=== PATIENT | female | born 1970 | race Caucasian/White ===

== ENCOUNTER 2019-02-10 00:25 | Outpatient (CLI) | payer MEDICAID, SELFPAY ==
--- NOTE | 2019-02-10 08:52 | DI.COMBO_ITS ---
SYMPTOM/DIAGNOSIS: BILAT CYSTIC BREAST LESIONS, N63.0 MAMMOGRAMS AND RIGHT BREAST ULTRASOUND: Mammograms were interpreted according to the usual protocol including computer analysis with CAD system, tomosynthesis and C view imaging. Comparison is made with prior examinations. Breast density, Category D. No suspicious masses or microcalcifications are seen. There has been interval decrease in size of the cyst in the upper inner quadrant of the left breast compared to the prior examination. There is a partially obscured, well circumscribed nodular density at the 9 o'clock position of the right breast. No suspicious microcalcifications are seen. The skin and axilla are unremarkable. Right breast ultrasound was performed of the outer right breast. There are multiple cysts present. The largest is a 1.9 by 1.1 cm. simple cyst at the 8 o'clock position of the left breast which appears to account for the findings on the mammogram. A smaller 0.6 cm. cyst is also seen at the 9 o'clock position 6 cm. from the nipple. IMPRESSION: Right breast cysts. No evidence for malignancy. Yearly mammography is recommended. Category 2. The findings were discussed with the patient on the date of the examination. SA ASSESSMENT OF FINDINGS: Negative with benign findings. Category 2. Patient will receive a letter notifying them of these results. BI-RADS category D. The breasts are extremely dense, which lowers the sensitivity of mammography.
== END 2019-02-10 00:45 ==
PROVIDERS: PCP Family Medicine; Visit Provider Obstetrics & Gynecology Gynecology
DX: N63.11 Unspecified lump in the right breast, upper outer quadrant (principal); N60.11 Diffuse cystic mastopathy of right breast
CPT/HCPCS: 76642; 77062; 77066; G0279

== ENCOUNTER 2019-02-15 14:17 | Outpatient (REF) | payer MEDICAID, SELFPAY ==
--- NOTE | 2019-02-15 13:40 | PAPFT_PTH ---
PATIENT: Freida Gomez LOC: [facility] U#:[id number] AGE/SX: 48/F ROOM: RE02/15/[address]: Reina Beaver : 1970 BED: DIS: 02/15/2019 SPEC #: [id number] RECD: 02/15/19 18:03 STATUS: NIRANJAN RESharri #: [id number] MICHELE: 02/15/19 13:[address]: Reina Beaver DEPT: [facility] Cytology RECD BY: Rupinder Amado ENTERED: 02/15/19 18:03 SP TYPE: PAPFT OTHR DR: Kristy Perera Tissues: 1 - CX/ENDOCX FOR PAP SMEARS Procedures: PAP THIN PREP/UVM Screening HPV DNA PROBE Comments: [id number]
== END 2019-02-15 14:37 ==
LOC: LBN 14:17
PROVIDERS: PCP Family Medicine; Visit Provider Obstetrics & Gynecology Gynecology
DX: Z12.4 Encounter for screening for malignant neoplasm of cervix (principal); Z11.51 Encounter for screening for human papillomavirus (HPV)
CPT/HCPCS: 88142; 87624

== ENCOUNTER 2019-03-20 19:30 | Emergency (ER) | payer MEDICAID, SELFPAY ==
[2019-03-20 19:38] VITALS: BP 127/64; PULSE 63; RESP 16; TEMP 36.6; O2SAT 98
--- NOTE | 2019-03-20 19:48 | W.ED.GENAD ---
Discharge Plan Disposition Patient Disposition: HOME Condition: Improving Discharge Details Chief Complaint: EyeProblem Clinical Impression: Acute conjunctivitis of right eye Primary Care Provider: Kristy Perera ED Provider: Bobby Hood Home Meds and New Rx's Prescriptions: Continued Excedrin Migraine 250-250-65 mg Tablet 1 tab PO PRN PRNRF: 0 herbal drugs Capsule PO DAILY RF: 0 Discharge Instructions Instructions: Conjunctivitis (ED) Additional Instructions: Erythromycin ointment to right eye 3 times daily for 5 to 7 days time. Return for any acute concern. Follow-up with regular doctor if not improving in 5 to 7 days time Medical Decision Making 48-year-old female presents with a primary concern of right eye injection and crusting of the lid this morning with drainage. She has had an antecedent upper respiratory illness with cough, congestion, sore throat. This is improving. Her exam is consistent with acute right conjunctivitis. Will treat with erythromycin ointment. She understands homecare and return precatuions. HPI General Mode of arrival: ambulatory. Date/Time Provider Initiated Documentation: 03/20/19 19:39. Limitations to Documentation: no limitations. Information obtained by: patient. History of Present Illness 48 year old F presents to the emergency department with the chief complaint of Cough, cold, right eye congestion and drainage with crusting of the eyelid, described as moderate, Quality is described as constant, and is localized to the face and right. Patient reports no radiation. Patient started experiencing this day(s) and it has been constant. No relieving factors improve symptom(s), No exacerbating factors reported . Patient notes cough; denies fever/chills. Patient did receive the following treatments prior to arrival, none Related Data Home Medications Medication Instructions Recorded Confirmed Excedrin Migraine 1 tab PO PRN PRN 03/20/19 03/20/19 herbal drugs PO DAILY 03/20/19 Allergies Allergy/AdvReac Type Severity Reaction Status Date / Time Sulfa (Sulfonamide Allergy Intermediate RASH Unverified 03/03/19 15:19 Antibiotics) General Stated Complaint: EyeProblem JANETT: 4 Review of Systems Review of Systems Positive cough that is improving. She had a mild headache that is improving. 6 systems reviewed and otherwise no PFSH Medical History Endometriosis (Inactive) Female infertility (Inactive) Depression (Chronic) Migraine (Resolved) Fibrocystic disease of breast (Chronic) Surgical History Diagnostic Laproscopy (Resolved) Family History Other Diabetes Personal history of malignant neoplasm Social History Smoking/Tobacco Use Status: Never Alcohol Intake: never Drug use: Never Household members: spouse, children and other Details: H-Gabriel. current occupation: Not employed Do you feel safe at home: Yes Do you feel safe in your relationship?: Yes History History 0 Para Hx # Term Pregnancies Multiple births Hx # Pregnancies Ectopic pregnancies AB induced Hx Number of Living Children AB spontaneous Exam Narrative Exam Narrative: GEN: awake, alert, oriented 3. Pleasant, well groomed, interactive. HEAD: Normocephalic, atraumatic ENT: Mucous membranes moist, oropharynx unremarkable, External ear exam unremarkable EYES: Right conjunctival injection with crusting of the lid present. PERRL, EOMI NECK: Full ROM, no JESSICA, no menigismus CHEST/RESP: Nontender, clear to auscultation bilateral, no wheeze/rhonchi/rales CARDIOVASCULAR: RRR, no murmur, rub kavitha. 2+ Rad pulse bilateral ABDOMEN: Soft, nontender, no mass. +Bowel sounds EXT: Full ROM, no edema, no rash Neuro: Grossly normal neurologic exam, conversant, interactive. Psych: Speech fluent, thoughts congruent, affect normal Course Vital Signs Temperature 36.6 C 03/20/19 19:38 Pulse 63 03/20/19 19:38 Respiratory Rate 16 03/20/19 19:38 Blood Pressure 127/64 03/20/19 19:38 Pulse Oximetry 98 03/20/19 19:38 Temperature 36.6 C 03/20/19 19:38 Temperature Source Temporal Artery Scan 03/20/19 19:38 Pulse 63 03/20/19 19:38 Respiratory Rate 16 03/20/19 19:38 Respiratory Effort 03/20/19 19:41 Blood Pressure 127/64 03/20/19 19:38 Pulse Oximetry 98 03/20/19 19:38 Oxygen Delivery Method Room Air 03/20/19 19:38 Oxygen Flow Rate 0 03/20/19 19:38
[2019-03-20] MEDS: Erythromycin Ophth Oint 3.5 GM TUBE OD (19:51)
--- NOTE | 2019-03-20 19:51 | ED.GENADUL_ITS ---
Discharge Plan Disposition Patient Disposition: HOME Condition: Improving Discharge Details Chief Complaint: EyeProblem Clinical Impression: Acute conjunctivitis of right eye Primary Care Provider: Kristy Perera ED Provider: Bobby Hood Home Meds and New Rx's Prescriptions: Continued Excedrin Migraine 250-250-65 mg Tablet 1 tab PO PRN PRNRF: 0 herbal drugs Capsule PO DAILY RF: 0 Discharge Instructions Instructions: Conjunctivitis (ED) Additional Instructions: Erythromycin ointment to right eye 3 times daily for 5 to 7 days time. Return for any acute concern. Follow-up with regular doctor if not improving in 5 to 7 days time Medical Decision Making 48-year-old female presents with a primary concern of right eye injection and crusting of the lid this morning with drainage. She has had an antecedent upper respiratory illness with cough, congestion, sore throat. This is improving. Her exam is consistent with acute right conjunctivitis. Will treat with erythromycin ointment. She understands homecare and return precatuions. HPI General Mode of arrival: ambulatory . Date/Time Provider Initiated Documentation: 03/20/19 19:39 . Limitations to Documentation: no limitations . Information obtained by: patient . History of Present Illness 48 year old F presents to the emergency department with the chief complaint of Cough, cold, right eye congestion and drainage with crusting of the eyelid, described as moderate, Quality is described as constant, and is localized to the face and right. Patient reports no radiation. Patient started experiencing this day(s) and it has been constant. No relieving factors improve symptom(s), No exacerbating factors reported . Patient notes cough; denies fever/chills. Patient did receive the following treatments prior to arrival, none Related Data Home Medications Medication Instructions Recorded Confirmed Excedrin Migraine 1 tab PO PRN PRN 03/20/19 03/20/19 herbal drugs PO DAILY 03/20/19 Allergies Allergy/AdvReac Type Severity Reaction Status Date / Time Sulfa (Sulfonamide Allergy Intermediate RASH Unverified 03/03/19 15:19 Antibiotics) General Stated Complaint: EyeProblem JANETT: 4 Review of Systems Review of Systems Positive cough that is improving. She had a mild headache that is improving. 6 systems reviewed and otherwise no PFSH Medical History Endometriosis (Inactive) Female infertility (Inactive) Depression (Chronic) Migraine (Resolved) Fibrocystic disease of breast (Chronic) Surgical History Diagnostic Laproscopy (Resolved) Family History Other Diabetes Personal history of malignant neoplasm Social History Smoking/Tobacco Use Status: Never Alcohol Intake: never Drug use: Never Household members: spouse, children and other Details: H-Gabriel. current occupation: Not employed Do you feel safe at home: Yes Do you feel safe in your relationship?: Yes History History 0 Para Hx # Term Pregnancies Multiple births Hx # Pregnancies Ectopic pregnancies AB induced Hx Number of Living Children AB spontaneous Exam Narrative Exam Narrative: GEN: awake, alert, oriented 3. Pleasant, well groomed, interactive. HEAD: Normocephalic, atraumatic ENT: Mucous membranes moist, oropharynx unremarkable, External ear exam unremarkable EYES: Right conjunctival injection with crusting of the lid present. PERRL, EOMI NECK: Full ROM, no JESSICA, no menigismus CHEST/RESP: Nontender, clear to auscultation bilateral, no wheeze/rhonchi/rales CARDIOVASCULAR: RRR, no murmur, rub kavitha. 2+ Rad pulse bilateral ABDOMEN: Soft, nontender, no mass. +Bowel sounds EXT: Full ROM, no edema, no rash Neuro: Grossly normal neurologic exam, conversant, interactive. Psych: Speech fluent, thoughts congruent, affect normal Course Vital Signs Temperature 36.6 C 03/20/19 19:38 Pulse 63 03/20/19 19:38 Respiratory Rate 16 03/20/19 19:38 Blood Pressure 127/64 03/20/19 19:38 Pulse Oximetry 98 03/20/19 19:38 Temperature 36.6 C 03/20/19 19:38 Temperature Source Temporal Artery Scan 03/20/19 19:38 Pulse 63 03/20/19 19:38 Respiratory Rate 16 03/20/19 19:38 Respiratory Effort 03/20/19 19:41 Blood Pressure 127/64 03/20/19 19:38 Pulse Oximetry 98 03/20/19 19:38 Oxygen Delivery Method Room Air 03/20/19 19:38 Oxygen Flow Rate 0 03/20/19 19:38
== END 2019-03-20 20:46 | disposition home or self-care (01) ==
PROVIDERS: Emergency Provider Emergency Medicine; PCP Family Medicine
DX: H10.31 Unspecified acute conjunctivitis, right eye (principal)
CPT/HCPCS: 99283

== ENCOUNTER 2020-12-08 17:01 | Outpatient (REF) | payer OTHER, SELFPAY ==
[2020-12-08 21:16] LABS: Lithium 0.7 mmol/l (0.6-1.2)
[2020-12-08 21:57] LABS: Vitamin B12 275 pg/mL (193-986)
== END 2020-12-08 17:02 | disposition home or self-care (01) ==
LOC: NCHCN 17:01
PROVIDERS: PCP Family Medicine; Visit Provider Family Medicine
DX: F31.2 Bipolar disorder, current episode manic severe with psychotic features (principal); F43.10 Post-traumatic stress disorder, unspecified
CPT/HCPCS: 80178; 82607

== ENCOUNTER 2021-01-19 05:04 | Outpatient (CLI) | payer OTHER, SELFPAY ==
--- NOTE | 2021-01-19 14:00 | DI.CT_ITS ---
EXAM: CT SINUS WO CLINICAL HISTORY: SINUS INFECTION, J32.9. Evaluate for sinusitis. TECHNIQUE: Imaging Protocol: Axial computed tomography images with coronal and sagittal reformatted images were created and reviewed. COMPARISON: No exams were available for comparison FINDINGS: AXIAL IMAGES: Frontal sinuses: Normally aerated. Ethmoid air cells: Normally aerated. Maxillary sinuses: Normally aerated. Sphenoid sinus: Normally aerated. Ostiomeatal complexes: Patent. Osseous nasal septum: Deviated toward the right. Nasal cavity is clear. Visualized regional soft tissues: No acute findings. Orbits: Unremarkable. Bones: Defect in the right maxilla related to previous surgery. No evidence bony destruction. No pe riapical lucencies around the roots of the teeth. Mastoid Air Cells: Normally aerated. IMPRESSION: No evidence of sinus disease or other acute abnormality. RADIATION DOSE DELIVERED: 123.55mGy.cm Total DLP DATA REPOSITORY: All CT scans at this facility are submitted to the National Radiology Data Registry (NRDR) Dose Index Registry (DIR) with the [employer] (A[employer]). RADIATION OPTIMIZATION: All CT scans at this facility use at least one of these dose optimization te chniques: automated exposure control; mA and/or kV adjustment per patient size (includes targeted exa ms where dose is matched to clinical indication); or iterative reconstruction.
== END 2021-01-19 05:24 ==
PROVIDERS: PCP Family Medicine; Visit Provider Family Medicine
DX: J32.9 Chronic sinusitis, unspecified (principal)
CPT/HCPCS: 70486

== ENCOUNTER 2021-04-10 17:01 | Outpatient (REF) | payer OTHER, SELFPAY ==
[2021-05-09 08:06] LABS: Fungus Smear No Fungi Seen
== END 2021-04-10 17:02 | disposition home or self-care (01) ==
LOC: LBN 17:01
PROVIDERS: PCP Family Medicine; Visit Provider Naturopath
DX: J32.9 Chronic sinusitis, unspecified (principal); G93.3 Postviral and related fatigue syndromes; Z77.128 Contact with and (suspected) exposure to other hazards in the physical environment; R09.3 Abnormal sputum
CPT/HCPCS: 87102; 87206; 87252; 87070; 87205

== ENCOUNTER 2021-04-12 02:51 | Outpatient (CLI) | payer OTHER, SELFPAY ==
[2021-04-12 15:52] LABS: Abs Immature Grans 0.01 10^3/uL (0.0-0.06); Absolute Basophil Count 0.05 10^3/uL (0.0-0.2); Absolute Eosinophil Count 0.09 10^3/uL (0.0-0.7); Absolute Lymphocyte Count 1.16 10^3/uL (1.2-3.4); Absolute Monocyte Count 0.38 10^3/uL (0.1-0.8); Absolute Neutrophil Count 1.71 10^3/uL (1.2-6.7); Basophils % 1.5; Eosinophils % 2.6; HCT 40.6 % (36.0-46.0); HGB 13.6 g/dL (11.2-15.7); Immature Grans % 0.3; Lymphocytes % 34.1; MCH 30.8 pg (27.0-33.0); MCHC 33.5 % (32.0-36.0); MCV 92.1 fL (80-95); MPV 9.5 fL (8.0-11.0); Monocytes % 11.2; Neutrophils % 50.3; Nucleated RBC 0 %; Platelet Count 291 10^3/uL (130-400); RBC 4.41 10^6/uL (3.93-5.22); RDW-SD 44.3 fL
[2021-04-12 20:10] LABS: ALT 15 U/L (14-59); AST 15 U/L (15-37); Albumin 3.6 g/dL (3.4-5.0); Alkaline Phosphatase 79 U/L (46-116); Anion Gap 9.1 mmol/L (3-11); BUN 12 mg/dL (7-18); Bilirubin, Total 0.4 mg/dL (0.2-1.0); CO2 27.9 mmol/L (21.0-32.0); CREATININE 0.7 mg/dL (0.55-1.02); Calcium 9.3 mg/dL (8.5-10.1); Chloride 102 mmol/L (98-107); Glucose 90 mg/dL (74-106); Potassium 4.2 mmol/L (3.5-5.1); Sodium 139 mmol/L (136-145); Total Protein 6.6 g/dL (6.4-8.2)
[2021-04-14 13:16] LABS: EBV EA IgG Negative (Negative)
[2021-04-16 10:36] LABS: EBNA IgG Negative (Negative); EBV Interpretation (See Note); VCA IgG Positive (Negative); VCA IgM Negative (Negative)
[2021-04-16 10:50] LABS: IgA 238 mg/dL (85-499); IgG 847 mg/dL (610-1,616); IgM 49 mg/dL (35-242)
[2021-04-16 11:16] LABS: Alternaria Tenuis IgE 1.39 kU/L; Aspergillus Fumigatus IgE <0.35 kU/L; Cladosporium IgE <0.35 kU/L; Fusarium moniliforme, IgE <0.35 kU/L (<0.35); Penicillium chrysogenum IgE <0.35 kU/L; Stemphyllium IgE 0.47 kU/L
[2021-04-16 14:48] LABS: M. pneumoniae Ab, IgG Positive (Negative); M. pneumoniae Ab, IgM Negative (Negative)
[2021-04-18 17:42] LABS: CLASS 0; Rhodotorula IgE <0.35 kU/L (<0.35)
== END 2021-04-12 02:52 | disposition home or self-care (01) ==
LOC: LBO 10:54 → LBN 15:08 → LBO 15:09
PROVIDERS: PCP Family Medicine; Visit Provider Naturopath
DX: R09.3 Abnormal sputum (principal); J32.9 Chronic sinusitis, unspecified; Z77.128 Contact with and (suspected) exposure to other hazards in the physical environment; G93.3 Postviral and related fatigue syndromes
CPT/HCPCS: 36415; 80053; 82784; 86003; 86663; 85025; 86664; 86665; 86738

== ENCOUNTER 2021-04-12 15:16 | Outpatient (REF) | payer OTHER, SELFPAY ==
[2021-04-16 21:48] LABS: Arsenic Concentration w/Reflex 14 mcg/L; Arsenic, 24 Hr, U 5 mcg/24 h (<35); Cadmium, 24 Hr, U <0.5 mcg/24 h (<0.7); Lead, 24 Hr, U <1 mcg/24 h (<2); Mercury, 24 Hr, U <2 mcg/24 h (<2); Total Volume 400 mL
[2021-05-10 12:03] LABS: Misc Referral (MAYO) See Comments
== END 2021-04-12 15:17 | disposition home or self-care (01) ==
LOC: LBN 15:16
PROVIDERS: PCP Family Medicine; Visit Provider Naturopath
DX: Z77.128 Contact with and (suspected) exposure to other hazards in the physical environment (principal); J32.9 Chronic sinusitis, unspecified; G93.3 Postviral and related fatigue syndromes; R09.3 Abnormal sputum
CPT/HCPCS: 82175; 82300; 83655; 83825; 81050

== ENCOUNTER 2022-06-12 16:22 | Outpatient (REF) | payer OTHER, SELFPAY ==
[2022-06-12 16:29] LABS: Abs Immature Grans 0.01 10^3/uL (0.0-0.06); Absolute Basophil Count 0.04 10^3/uL (0.0-0.2); Absolute Eosinophil Count 0.58 10^3/uL (0.0-0.7); Absolute Lymphocyte Count 1.22 10^3/uL (1.2-3.4); Absolute Monocyte Count 0.38 10^3/uL (0.1-0.8); Absolute Neutrophil Count 1.83 10^3/uL (1.2-6.7); Eosinophils % 14.3; HCT 39.1 % (36.0-46.0); HGB 12.7 g/dL (11.2-15.7); Immature Grans % 0.2; MCH 30.3 pg (27.0-33.0); MCHC 32.5 % (32.0-36.0); MCV 93 fL (80-95); MPV 10.4 fL (8.0-11.0); Monocytes % 9.4; Neutrophils % 45.1; Platelet Count 280 10^3/uL (130-400); RBC 4.19 10^6/uL (3.93-5.22); RDW 12.9 % (11.7-14.6); RDW-SD 44.2 fL; WBC 4.06 10^3/uL (4.4-10.8)
[2022-06-12 17:18] LABS: PROTEIN < 6.0 mg/dL
[2022-06-12 17:19] LABS: COMMENT (LAB VIEW ONLY) 26.95 mg/dL
[2022-06-12 17:20] LABS: ALT 64 U/L (14-59); AST 32 U/L (15-37); Albumin 3.7 g/dL (3.4-5.0); Alkaline Phosphatase 148 U/L (46-116); BUN 21 mg/dL (7-18); Bilirubin, Total 0.3 mg/dL (0.2-1.0); CREATININE 0.9 mg/dL (0.55-1.02); Chloride 104 mmol/L (98-107); Glucose 96 mg/dL (74-106); Magnesium 2.3 mg/dL (1.8-2.4); Potassium 4.5 mmol/L (3.5-5.1); Sodium 142 mmol/L (136-145); Total Protein 6.8 g/dL (6.4-8.2)
== END 2022-06-12 16:23 | disposition home or self-care (01) ==
LOC: NCHCN 16:22
PROVIDERS: PCP Family Medicine; Visit Provider Nurse Practitioner Family
DX: F43.10 Post-traumatic stress disorder, unspecified (principal); R10.9 Unspecified abdominal pain; Z71.89 Other specified counseling; Z71.3 Dietary counseling and surveillance
CPT/HCPCS: 80053; 82043; 82565; 82570; 83735; 84156; 85025

== ENCOUNTER 2022-07-26 15:10 | Outpatient (REF) | payer OTHER, SELFPAY ==
[2022-07-26 15:54] LABS: Abs Immature Grans 0.01 10^3/uL (0.0-0.06); Absolute Basophil Count 0.02 10^3/uL (0.0-0.2); Absolute Eosinophil Count 0.38 10^3/uL (0.0-0.7); Absolute Lymphocyte Count 1.22 10^3/uL (1.2-3.4); Absolute Monocyte Count 0.41 10^3/uL (0.1-0.8); Absolute Neutrophil Count 2.16 10^3/uL (1.2-6.7); Basophils % 0.5; HCT 38.8 % (36.0-46.0); HGB 12.6 g/dL (11.2-15.7); Immature Grans % 0.2; MCH 30.1 pg (27.0-33.0); MCHC 32.5 % (32.0-36.0); MCV 93 fL (80-95); MPV 10.4 fL (8.0-11.0); Monocytes % 9.8; Neutrophils % 51.5; Platelet Count 252 10^3/uL (130-400); RBC 4.18 10^6/uL (3.93-5.22); RDW 12.2 % (11.7-14.6)
[2022-07-26 17:11] LABS: ALT 40 U/L (14-59); AST 25 U/L (15-37); Albumin 3.5 g/dL (3.4-5.0); Alkaline Phosphatase 109 U/L (46-116); Anion Gap 7.6 mmol/L (3-11); BUN 21 mg/dL (7-18); Bilirubin, Total 0.3 mg/dL (0.2-1.0); CO2 27.4 mmol/L (21.0-32.0); Calcium 9.1 mg/dL (8.5-10.1); Chloride 105 mmol/L (98-107); Estimated GFR 67.36 (mL/min/1.73m2); Glucose 87 mg/dL (74-106); Potassium 4.2 mmol/L (3.5-5.1); Sodium 140 mmol/L (136-145); TSH (W/Ref FT4) 1.61 uIU/mL (0.36-3.74); Total Protein 6.7 g/dL (6.4-8.2)
[2022-07-26 17:42] LABS: Calculated LDL 130 mg/dL (<100); Cholesterol 237 mg/dL (<200); HDL Cholesterol 99 mg/dL (40-60); Triglyceride 41 mg/dL (<150)
== END 2022-07-26 15:11 | disposition home or self-care (01) ==
LOC: NCHCN 15:10
PROVIDERS: PCP Family Medicine; Visit Provider Nurse Practitioner Family
DX: I89.0 Lymphedema, not elsewhere classified (principal); J32.9 Chronic sinusitis, unspecified; M25.562 Pain in left knee; Z71.3 Dietary counseling and surveillance
CPT/HCPCS: 80053; 80061; 84443; 85025

== ENCOUNTER 2022-08-13 02:23 | Outpatient (CLI) | payer OTHER, SELFPAY ==
--- NOTE | 2022-08-13 11:28 | DI.RAD_ITS ---
Exam(s) XR CHEST 2V PA LATERAL EXAM: XR CHEST 2V PA LATERAL CLINICAL HISTORY: LOWER EXTREMITY EDEMA, R60.0; EXERTIONAL SOB, R06.09 TECHNIQUE: 2D digital imaging was performed of the chest. Two images were obtained. PA and lateral views were obtained. COMPARISON: No exams were available for comparison FINDINGS: MEDIASTINUM: Normal. HEART: Normal. PULMONARY VASCULATURE: Normal. LUNGS: Clear. PLEURAL SPACE: No pleural effusion or pneumothorax. BONE:Within normal limits for the patient's age. OTHER FINDINGS:Normal. IMPRESSION: No acute pulmonary findings. DATA REPOSITORY: RADIATION DOSE DELIVERED:
--- NOTE | 2022-08-13 11:45 | DI.US_ITS ---
Exam(s) US ABDOMEN LIMITED EXAM: US ABDOMEN LIMITED CLINICAL HISTORY: ELEVATED LFTS, R79.89; BILAT LOWER EXTREMITY EDEMA, R60.0 TECHNIQUE: Ultrasound abdomen performed using standard protocol. COMPARISON: US PELVIS TRANSVAG from 08/24/2015 FINDINGS: PANCREAS: Normal where visualized. LIVER: Normal. Hepatopedal flow in the Portal Vein. The liver measures in 13.3 cm length. GALLBLADDER: No evidence of cholelithiasis. No evidence of wall thickening. No pericholecystic fluid identified. BILIARY SYSTEM: Common bile duct measures < 7 mm. No intrahepatic biliary ductal dilation. GREGORY'S SIGN: Negative. RIGHT KIDNEY: Kidney is normal in size. No evidence of renal calculi. No evidence of hydronephrosis. There is a 2.7 x 2.8 cm simple cyst in the midpole of the right kidney. No follow-up is recommended . This is present on the ultrasound of the pelvis from 08/24/2015. ASCITES: None seen. IMPRESSION: Unremarkable limited abdominal ultrasound. DATA REPOSITORY:
== END 2022-08-13 02:43 ==
LOC: DI 02:23
PROVIDERS: PCP Family Medicine; Visit Provider Nurse Practitioner Family
DX: N28.1 Cyst of kidney, acquired (principal)
CPT/HCPCS: 71046; 76705

== ENCOUNTER 2022-08-22 18:04 | Outpatient (REF) | payer OTHER, SELFPAY ==
[2022-08-22 18:47] LABS: NT-proBNP 197 pg/mL (<300)
== END 2022-08-22 18:05 | disposition home or self-care (01) ==
LOC: NCHCN 18:04
PROVIDERS: PCP Family Medicine; Visit Provider Nurse Practitioner Family
DX: I07.1 Rheumatic tricuspid insufficiency (principal); R60.0 Localized edema
CPT/HCPCS: 83880

== ENCOUNTER 2022-08-25 09:51 | Emergency (ER) | payer OTHER, SELFPAY ==
[2022-08-25 10:00] VITALS: BP 124/66; PULSE 77; RESP 18; TEMP 36.7; O2SAT 100
--- NOTE | 2022-08-25 10:00 | RT.EKG_ITS ---
APPROVED REPORT Exam: Resting ECG Reason for Exam: chest pressure Patient Location: E HR:78 bpm ECG Measurements Heart Rate 78 AXIS MI 108 P 26 QRSd 92 QRS 54 QT 381 T 11 QTc 436 Conclusion Sinus rhythm...normal P axis, V-rate 60- 99
--- NOTE | 2022-08-25 10:15 | DI.RAD_ITS ---
Exam(s) XR PORTABLE CHEST AP EXAM: XR PORTABLE CHEST AP CLINICAL HISTORY: cough, sputum, PUI. TECHNIQUE: 2D digital imaging was performed. COMPARISON: CR XR CHEST 2V PA LATERAL from 08/13/2022 FINDINGS: Single AP portable view. Heart size is upper normal. The mediastinum is not widened. Lungs are clear. No infiltrates nor obvious pleural effusions. IMPRESSION: No acute pulmonary findings on this single AP portable view of the chest. DATA REPOSITORY: RADIATION DOSE DELIVERED:
--- NOTE | 2022-08-25 10:26 | ED.GENADUL_ITS ---
Discharge Plan Disposition Patient Disposition: HOME Condition: Improving Discharge Details Clinical Impression: Bronchitis Primary Care Provider: ATTILA GARCIA ED Provider: Bobby Hood Home Meds and New Rx's Prescriptions: New azithromycin 250 mg tablet See Rx Instructions .ROUTE .COMPLEX Qty: 6 0RF Rx Instructions: For 250 mg dose pack: take 500 mg today (day 1), then 250 mg for 4 days (days 2-5) Continued conjugated estrogens 0.625 mg/gram cream 0.625 mg vaginal DAILY Qty: 30 1RF Rx Instructions: insert 1 gm vaginally daily for 2 weeks then twice weekly Excedrin Migraine 250-250-65 mg Tablet 1 tab PO PRN PRN herbal drugs Capsule PO DAILY furosemide 20 mg tablet 1 tab PO DAILY Label Comments: TAKE ONE-HALF TO ONE TABLET BY MOUTH ONCE DAILY NEEDED Discharge Instructions Instructions: Acute Bronchitis (ED) Additional Instructions: Your work-up today including chest x-ray, EKG and laboratories with cardiac troponin was reassuring. Home to rest today. Has he discussed you may use a [id number] approach to the use of antibiotics for acute bronchitis. Please follow-up with your regular doctor for recheck as planned. Medical Decision Making 51-year-old female presents from home with complaint of 1 week of URI symptoms including cough, congestion, production of brown and somewhat pink sputum at times. She was recently diagnosed with a 50 pound weight gain and started on 20 mg of daily Lasix this week. She has had malaise and some subjective chills. No shortness of breath and no significant chest pain. She is alert and interactive, well-appearing, her exam is reassuring. Differential diagnosis would include pneumonia, bronchitis, viral syndrome, must exclude CHF given her recent history. IV access was established and screening labs obtained. Patient referred for EKG, chest x-ray. Laboratory analysis notes unremarkable CBC, negative influenza and COVID swabs. Chemistries note slight elevation of the BUN and creatinine at 21/1.1. BNP is 131 and troponin is negative. Chest x-ray without focal infiltrate. Please see the formal report. Patient reassured. She likely does have a component of bronchitis. Offered her antibiotics for the outpatient setting. She has freestanding follow-up in cardiology clinic pending. She will follow-up with primary care as well. HPI General Mode of arrival: ambulatory . Date/Time Provider Initiated Documentation: 08/25/22 10:10 . Limitations to Documentation: no limitations . Information obtained by: patient . History of Present Illness 51 year old F presents to the emergency department with the chief complaint of Cough and production of sputum for 1 week, described as moderate, and is localized to the chest. Patient reports no radiation. Patient started experiencing this day(s) and it has been intermittent. No relieving factors improve symptom(s), No exacerbating factors reported . Patient notes cough, malaise and other (No significant chest pain); denies shortness of breath. Patient did receive the following treatments prior to arrival, none Related Data Home Medications Medication Instructions Recorded Confirmed [id number] 250 1 tab PO PRN PRN 03/20/19 08/25/22 mg-250 mg-65 mg tablet (Excedrin Migraine) herbal drugs PO DAILY 03/20/19 05/25/22 conjugated estrogens 0.625 mg/gram 0.625 mg vaginal DAILY #30 grams 04/03/22 08/25/22 vaginal cream azithromycin 250 mg tablet See Rx Instructions PO .COMPLEX #6 08/25/22 tabs furosemide 20 mg tablet 1 tab PO DAILY 08/25/22 08/25/22 Previous Rx's Medication Instructions Recorded conjugated estrogens 0.625 mg/gram 0.625 mg vaginal DAILY #30 grams 04/03/22 vaginal cream azithromycin 250 mg tablet See Rx Instructions PO .COMPLEX #6 08/25/22 tabs Allergies Allergy/AdvReac Type Severity Reaction Status Date / Time Sulfa (Sulfonamide Allergy Intermediate RASH Unverified 08/25/22 10:14 Antibiotics) bupropion [From Wellbutrin] Allergy Unknown Verified 08/25/22 10:14 buspirone Allergy Unknown Verified 08/25/22 10:14 cetirizine [From Zyrtec] Allergy Unknown Verified 08/25/22 10:14 escitalopram [From Lexapro] Allergy Unknown Verified 08/25/22 10:14 naproxen Allergy Unknown Verified 08/25/22 10:14 paroxetine [From Paxil] Allergy Unknown Verified 08/25/22 10:14 trazodone Allergy Unknown Verified 08/25/22 10:14 seafood Allergy Unknown Uncoded 08/25/22 10:14 General Stated Complaint: RespSymp JANETT: 3 Review of Systems Narrative: 6 systems reviewed and otherwise negative. Recent 50 pound weight gain and started on Lasix 20 mg daily this week. PFSH All Active Problems (Updated 08/25/22 @ 11:58 by Bobby Hood MD) Bronchitis (Acute) Bilateral lower extremity edema (Acute) Knee pain, left (Acute) Anxiety (Chronic) PTSD (post-traumatic stress disorder) (Acute) Bipolar affective disorder, manic, severe (Acute) with psychosis Chronic sinusitis (Acute) Back pain (Acute) Physical deconditioning (Acute) Vaginal atrophy (Acute) Dyspareunia (Acute) Right groin pain (Acute) Bilateral arm pain (Acute) Elbow pain, right (Acute) Insomnia (Acute) Neck pain (Acute) Depression (Chronic) 05/2015/07/2015 [place] [facility] for dx of bipolar dz. Rx with [place]/Zyprexa that was changed to Risperidone until pt began having poor sleep and somnolence. 09/2015 Celexa. 12/2015 Celexa and Abilify. Fibrocystic disease of breast (Chronic) 2018 office aspiration of left benign breast cyst. 02/2019 aspiration of right breast cyst. Family History Other Diabetes Personal history of malignant neoplasm Social History Smoking/Tobacco Use Status: Never Smoking risk assessment performed?: Yes Alcohol Intake: never Drug use: Never Household members: spouse, children and other Details: H-Gabriel. current occupation: Not employed Do you feel safe at home: Yes Do you feel safe in your relationship?: Yes History History 0 Para Hx # Term Pregnancies Multiple births Hx # Pregnancies Ectopic pregnancies AB induced Hx Number of Living Children AB spontaneous Exam Narrative Exam Narrative: GEN: awake, alert, oriented 3. Pleasant, well groomed, interactive. HEAD: Normocephalic, atraumatic ENT: Mucous membranes moist, oropharynx unremarkable, External ear exam unremarkable EYES: PERRL, EOMI NECK: Full ROM, no JESSICA, no menigismus CHEST/RESP: Nontender, clear to auscultation bilateral, cough noted CARDIOVASCULAR: RRR, no murmur, rub kavitha. 2+ Rad pulse bilateral ABDOMEN: Soft, nontender, no mass. +Bowel sounds EXT: Full ROM, normal musculature Neuro: Grossly normal neurologic exam, conversant, interactive. Psych: Speech fluent, thoughts congruent, affect normal Course Vital Signs Vital signs: Temperature Source Skin 08/25/22 10:00 Oxygen Delivery Method Room Air 08/25/22 10:00 Oxygen Flow Rate 0 08/25/22 10:00 Pain Level 8 08/25/22 10:00
[2022-08-25 11:05] LABS: Abs Immature Grans 0.01 10^3/uL (0.0-0.06); Absolute Basophil Count 0.03 10^3/uL (0.0-0.2); Absolute Eosinophil Count 0.43 10^3/uL (0.0-0.7); Absolute Lymphocyte Count 1.58 10^3/uL (1.2-3.4); Absolute Monocyte Count 0.56 10^3/uL (0.1-0.8); Absolute Neutrophil Count 4.18 10^3/uL (1.2-6.7); Basophils % 0.4; Eosinophils % 6.3; HCT 41.4 % (36.0-46.0); HGB 13.6 g/dL (11.2-15.7); Immature Grans % 0.1; Lymphocytes % 23.3; MCH 29.6 pg (27.0-33.0); MCHC 32.9 % (32.0-36.0); MCV 90 fL (80-95); MPV 9.5 fL (8.0-11.0); Monocytes % 8.2; Neutrophils % 61.7; Platelet Count 256 10^3/uL (130-400); RDW-SD 39.5 fL; WBC 6.79 10^3/uL (4.4-10.8)
[2022-08-25 11:38] LABS: COVID-19 PCR Negative (Negative); Influenza A PCR Negative (Negative); Influenza B PCR Negative (Negative); RSV PCR Negative (Negative)
--- NOTE | 2022-08-25 11:42 | DI.VRAD_ITS ---
PROCEDURE INFORMATION: Exam: XR Chest Exam date and time: 08/25/2022 11:05 AM Age: 51 years old Clinical indication: Other: SOB, cough, sputum, pui TECHNIQUE: Imaging protocol: Radiologic exam of the chest. Views: 1 view. COMPARISON: CR XR CHEST 2V PA LATERAL 08/13/2022 11:23 AM FINDINGS: Lungs: No focal consolidation. Pleural spaces: No pneumothorax or sizable pleural effusion. Heart/Mediastinum: Normal cardiomediastinal silhouette. Bones/joints: No acute abnormality. IMPRESSION: No acute findings. Dictated and Authenticated by: Sj Mccain MD. Ordering:UNIQUE Rosales MD
[2022-08-25 11:47] LABS: ALT 27 U/L (14-59); AST 16 U/L (15-37); Albumin 3.8 g/dL (3.4-5.0); Alkaline Phosphatase 104 U/L (46-116); Anion Gap 7.6 mmol/L (3-11); BUN 21 mg/dL (7-18); Bilirubin, Total 0.4 mg/dL (0.2-1.0); CO2 30.4 mmol/L (21.0-32.0); CREATININE 1.1 mg/dL (0.55-1.02); Calcium 9.6 mg/dL (8.5-10.1); Chloride 101 mmol/L (98-107); Estimated GFR 60.08 (mL/min/1.73m2); Glucose 90 mg/dL (74-106); NT-proBNP 131 pg/mL (<300); Potassium 3.8 mmol/L (3.5-5.1); Sodium 139 mmol/L (136-145); Total Protein 7.5 g/dL (6.4-8.2); Troponin I < 50 ng/L (<or=60)
[2022-08-25 12:26] VITALS: BP 119/72; PULSE 75; RESP 12; O2SAT 100
== END 2022-08-25 12:37 | disposition home or self-care (01) ==
PROVIDERS: Emergency Provider Emergency Medicine; PCP Nurse Practitioner Family
DX: J20.9 Acute bronchitis, unspecified (principal); Z20.822 Contact with and (suspected) exposure to COVID-19
CPT/HCPCS: 36415; 80053; 87637; 93005; 99283; 71045; 83880; 84484; 85025; 93010; 99284

== ENCOUNTER 2022-08-26 10:29 | Outpatient (CLI) | payer OTHER, SELFPAY ==
--- NOTE | 2022-08-26 08:33 | DI.RAD_ITS ---
Exam(s) XR KNEE LT 3V AP,LAT,JANET EXAM: XR KNEE LT 3V AP,LAT,JANET CLINICAL HISTORY: knee pain. TECHNIQUE: 2D digital imaging was performed. Three views. COMPARISON: CR XR KNEE RT 3V AP,LAT,JANET from 08/26/2022 FINDINGS: BONES: No acute fracture is present. No bony destructive lesion is seen. JOINTS: The knee is normally aligned. No joint effusion is seen. SOFT TISSUE: Normal. IMPRESSION: Normal radiographs of the left knee. DATA REPOSITORY: RADIATION DOSE DELIVERED:
--- NOTE | 2022-08-26 08:33 | DI.RAD_ITS ---
Exam(s) XR KNEE RT 3V AP,LAT,JANET EXAM: XR KNEE RT 3V AP,LAT,JANET CLINICAL HISTORY: pain in knee. TECHNIQUE: 2D digital imaging was performed. Three views. COMPARISON: No exams were available for comparison FINDINGS: BONES: No acute fracture is present. No bony destructive lesion is seen. JOINTS: The knee is normally aligned. No joint effusion is seen. SOFT TISSUE: Normal. IMPRESSION: Unremarkable radiographs of the right knee. DATA REPOSITORY: RADIATION DOSE DELIVERED:
== END 2022-08-26 10:30 | disposition home or self-care (01) ==
LOC: DIORS 10:29
PROVIDERS: PCP Nurse Practitioner Family; Referring Provider Nurse Practitioner Family; Visit Provider Physician Assistant Surgical
DX: M25.561 Pain in right knee (principal); M25.562 Pain in left knee
CPT/HCPCS: 73562

== ENCOUNTER 2022-11-25 19:34 | Outpatient (REF) | payer BC, OTHER, SELFPAY ==
[2022-11-25 18:38] LABS: Bacteria Negative HPF (Negative); C & S Indicated? No; Casts Negative LPF (Negative); Crystals Negative HPF (Negative); Epithelial Cells Few HPF (Negative); Mucus Negative (Negative); RBC 0-2 HPF (0-2); WBC 0-2 HPF (0-5)
[2022-11-25 18:39] LABS: Abs Immature Grans 0.02 10^3/uL (0.0-0.06); Absolute Basophil Count 0.03 10^3/uL (0.0-0.2); Absolute Eosinophil Count 0.29 10^3/uL (0.0-0.7); Absolute Lymphocyte Count 1.45 10^3/uL (1.2-3.4); Absolute Monocyte Count 0.29 10^3/uL (0.1-0.8); Absolute Neutrophil Count 2.08 10^3/uL (1.2-6.7); Basophils % 0.7; HCT 42.4 % (36.0-46.0); HGB 13.5 g/dL (11.2-15.7); Immature Grans % 0.5; Lymphocytes % 34.9; MCH 29.7 pg (27.0-33.0); MCHC 31.8 % (32.0-36.0); MCV 93 fL (80-95); MPV 10.5 fL (8.0-11.0); Neutrophils % 49.9; Platelet Count 298 10^3/uL (130-400); RBC 4.54 10^6/uL (3.93-5.22); RDW 12.8 % (11.7-14.6); RDW-SD 44.3 fL; WBC 4.16 10^3/uL (4.4-10.8)
[2022-11-25 19:00] LABS: COMMENT (LAB VIEW ONLY) 186.69 mg/dL; PROTEIN 16.2 mg/dL; Prot/Crea Ur Ratio 0.08
[2022-11-25 19:03] LABS: Microalb ug/mg Crea 3.7 ug/mg Cr
[2022-11-25 21:39] LABS: ALT 56 U/L (14-59); AST 33 U/L (15-37); Albumin 3.9 g/dL (3.4-5.0); Alkaline Phosphatase 103 U/L (46-116); Anion Gap 14.1 mmol/L (3-11); BUN 21 mg/dL (7-18); Bilirubin, Total 0.3 mg/dL (0.2-1.0); CO2 21.9 mmol/L (21.0-32.0); Calcium 9.7 mg/dL (8.5-10.1); Chloride 106 mmol/L (98-107); Estimated GFR 66.95 (mL/min/1.73m2); Glucose 84 mg/dL (74-106); Potassium 4.5 mmol/L (3.5-5.1); Sodium 142 mmol/L (136-145); Total Protein 7.3 g/dL (6.4-8.2)
== END 2022-11-25 19:35 | disposition home or self-care (01) ==
LOC: NCHCN 19:34
PROVIDERS: PCP Nurse Practitioner Family; Visit Provider Nurse Practitioner Family
DX: R60.0 Localized edema (principal); Z00.00 Encounter for general adult medical examination without abnormal findings; R79.89 Other specified abnormal findings of blood chemistry
CPT/HCPCS: 80053; 81015; 82043; 82565; 82570; 84156; 85025

== ENCOUNTER 2023-04-03 15:23 | Outpatient (REF) | payer OTHER, SELFPAY ==
[2023-04-03 15:17] LABS: Abs Immature Grans 0.02 10^3/uL (0.0-0.06); Absolute Basophil Count 0.03 10^3/uL (0.0-0.2); Absolute Eosinophil Count 0.39 10^3/uL (0.0-0.7); Absolute Lymphocyte Count 1.26 10^3/uL (1.2-3.4); Absolute Monocyte Count 0.51 10^3/uL (0.1-0.8); Absolute Neutrophil Count 2.79 10^3/uL (1.2-6.7); Basophils % 0.6; Eosinophils % 7.8; HCT 39.2 % (36.0-46.0); Immature Grans % 0.4; Lymphocytes % 25.2; MCH 30.5 pg (27.0-33.0); MCHC 33.2 % (32.0-36.0); MCV 92 fL (80-95); MPV 9.7 fL (8.0-11.0); Monocytes % 10.2; Neutrophils % 55.8; Platelet Count 265 10^3/uL (130-400); RBC 4.26 10^6/uL (3.93-5.22); RDW 12.7 % (11.7-14.6); RDW-SD 43.4 fL
[2023-04-03 15:23] LABS: ESR 19 mm/hr (0-30)
[2023-04-03 15:53] LABS: Vitamin D 25 Total 41.2 ng/mL (30-100)
[2023-04-03 15:55] LABS: ALT 30 U/L (14-59); AST 23 U/L (15-37); Albumin 3.3 g/dL (3.4-5.0); Alkaline Phosphatase 104 U/L (46-116); Anion Gap 6.1 mmol/L (3-11); BUN 16 mg/dL (7-18); Bilirubin, Total 0.3 mg/dL (0.2-1.0); C-Reactive Protein 1.81 mg/dL (0.0-0.3); CO2 27.9 mmol/L (21.0-32.0); Calcium 9.5 mg/dL (8.5-10.1); Chloride 106 mmol/L (98-107); Estimated GFR 66.95 (mL/min/1.73m2); Glucose 97 mg/dL (74-106); Potassium 4.1 mmol/L (3.5-5.1); Sodium 140 mmol/L (136-145); TSH (W/Ref FT4) 1.23 uIU/mL (0.36-3.74); Total Protein 6.8 g/dL (6.4-8.2)
[2023-04-03 15:57] LABS: Hemoglobin A1C 5.2 % (<5.7)
[2023-04-03 17:07] LABS: Vitamin B12 315 pg/mL (193-986)
[2023-04-03 19:59] LABS: Lithium 0.6 mmol/l (0.6-1.2)
== END 2023-04-03 15:24 | disposition home or self-care (01) ==
LOC: NCHCN 15:23
PROVIDERS: PCP Nurse Practitioner Family; Visit Provider Registered Nurse
DX: F31.9 Bipolar disorder, unspecified (principal); Z51.81 Encounter for therapeutic drug level monitoring
CPT/HCPCS: 80053; 82306; 85652; 80178; 82607; 83036; 83735; 84443; 85025; 86140

== ENCOUNTER 2023-11-04 09:51 | Emergency (ER) | payer OTHER, SELFPAY ==
[2023-11-04 09:55] VITALS: BP 158/103; PULSE 111; RESP 16; TEMP 36.5; O2SAT 100
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
[2023-11-04 10:37] LABS: Bilirubin Negative (Negative); Blood Negative (Negative); Clarity Sl Cloudy (Clear); Glucose Negative (Negative); Ketones 15 mg/dL (Negative); Leukocyte Esterase Trace (Negative); Nitrite Negative (Negative); Specific Gravity >= 1.030 (1.005-1.025); Urobilinogen 0.2 mg/dL (Up to 0.2); pH 5.5 (5-8)
[2023-11-04 10:42] LABS: HGB 14.4 g/dL (11.2-15.7); MCH 29.1 pg (27.0-33.0); MCHC 32.7 % (32.0-36.0); MCV 89 fL (80-95); MPV 9.4 fL (8.0-11.0); Platelet Count 284 10^3/uL (130-400); RBC 4.94 10^6/uL (3.93-5.22); RDW 13.3 % (11.7-14.6); WBC 5.94 10^3/uL (4.4-10.8)
[2023-11-04 10:44] LABS: Epithelial Cells Many HPF (Negative); RBC 0-2 HPF (0-2)
[2023-11-04 10:45] LABS: Bacteria Many HPF (Negative); C & S Indicated? No/Sq. Contamination; Casts Negative LPF (Negative); Crystals Negative HPF (Negative); Mucus Moderate (Negative)
[2023-11-04 10:55] LABS: *AMPHETAMINES SCREEN URINE Negative (Negative); *BARBITURATES SCREEN URINE Negative (Negative); *BENZODIAZEPINES SCREEN URINE Negative (Negative); Cannabinoids THC Negative (Negative); Cocaine Screen,Urine Negative (Negative); METHADONE URINE SCREEN Negative (Negative); OPIATES URINE SCREEN Negative (Negative)
[2023-11-04 10:57] LABS: Tricyclic Antidepressants Negative (Negative)
[2023-11-04 11:06] LABS: Salicylate < 2.8 mg/dL (<2.8)
[2023-11-04 11:10] LABS: Acetaminophen < 2 ug/mL (10-30); Lithium < 0.2 mmol/l (0.6-1.2)
[2023-11-04 11:18] LABS: Anion Gap 11.1 mmol/L (3-11); BUN 21 mg/dL (7-18); CO2 23.9 mmol/L (21.0-32.0); CREATININE 1.1 mg/dL (0.55-1.02); Calcium 9.6 mg/dL (8.5-10.1); Chloride 104 mmol/L (98-107); Estimated GFR 59.34 (mL/min/1.73m2); Glucose 101 mg/dL (74-106); Potassium 4.1 mmol/L (3.5-5.1); Sodium 139 mmol/L (136-145); TSH (W/Ref FT4) 1.33 uIU/mL (0.36-3.74)
[2023-11-04 11:19] LABS: ETHANOL BLOOD < 3.0 mg/dL (<10)
[2023-11-04 11:21] LABS: COVID-19 PCR Negative (Negative); Influenza A PCR Negative (Negative); Influenza B PCR Negative (Negative); RSV PCR Negative (Negative)
[2023-11-04 11:22] LABS: Source Nasopharynx
--- NOTE | 2023-11-04 12:09 | NUR.NOTE ---
Chema Shetty [phone] Nursing Note:
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
[2023-11-04 15:15] VITALS: BP 128/75; PULSE 95; O2SAT 98
[2023-11-04 18:12] LABS: NT-proBNP 155 pg/mL (<300)
[2023-11-04 18:17] LABS: Hemoglobin A1C 5.3 % (<5.7)
[2023-11-04 18:29] LABS: Lab Add On Test DONE
== END 2023-11-04 15:21 | disposition home or self-care (01) ==
PROVIDERS: Emergency Provider Registered Nurse Emergency; PCP Nurse Practitioner Family
DX: F41.9 Anxiety disorder, unspecified (principal); T74.91XA Unspecified adult maltreatment, confirmed, initial encounter
CPT/HCPCS: 00123; 80048; 80307; 85027; 87637; 96127; 99283; 80178; 80320; 80329; 81003; 81015; 83036; 83880; 84443

== ENCOUNTER 2023-11-11 13:41 | Outpatient (CLI) | payer OTHER, SELFPAY ==
[2023-11-11 12:16] LABS: Lithium 0.7 mmol/l (0.6-1.2)
== END 2023-11-11 13:42 | disposition home or self-care (01) ==
LOC: LBO 14:00
PROVIDERS: PCP Nurse Practitioner Family; Visit Provider Registered Nurse
DX: Z79.899 Other long term (current) drug therapy (principal)
CPT/HCPCS: 36415; 80178

== ENCOUNTER 2023-11-12 10:04 | Outpatient (CLI) | payer OTHER, SELFPAY ==
[2023-11-12 09:20] LABS: Bilirubin Negative (Negative); Blood Trace-intact (Negative); Clarity Clear (Clear); Glucose Negative (Negative); Ketones Negative (Negative); Leukocyte Esterase Small (Negative); Nitrite Negative (Negative); Urobilinogen 0.2 mg/dL (Up to 0.2); pH 6.5 (5-8)
[2023-11-12 09:27] LABS: Glucose 88 mg/dL (74-106)
[2023-11-12 09:45] LABS: Epithelial Cells Moderate HPF (Negative)
[2023-11-12 09:46] LABS: Bacteria Rare HPF (Negative); C & S Indicated? No/Sq. Contamination; Casts Negative LPF (Negative); Crystals Negative HPF (Negative); Mucus Negative (Negative)
== END 2023-11-12 10:05 | disposition home or self-care (01) ==
LOC: LBO 10:05
PROVIDERS: PCP Nurse Practitioner Family; Visit Provider Registered Nurse
DX: Z79.899 Other long term (current) drug therapy (principal)
CPT/HCPCS: 36415; 82947; 81003; 81015

== ENCOUNTER 2023-11-26 12:26 | Outpatient (CLI) | payer OTHER, SELFPAY ==
[2023-11-26 12:05] LABS: Lithium 0.7 mmol/l (0.6-1.2)
== END 2023-11-26 12:27 | disposition home or self-care (01) ==
PROVIDERS: PCP Nurse Practitioner Family; Visit Provider Registered Nurse
DX: F31.89 Other bipolar disorder (principal); F41.8 Other specified anxiety disorders; Z79.899 Other long term (current) drug therapy
CPT/HCPCS: 36415; 80178

== ENCOUNTER 2024-10-21 02:45 | Outpatient (CLI) | payer OTHER, SELFPAY ==
[2024-10-21 08:04] LABS: Abs Immature Grans 0.02 10^3/uL (0.0-0.06); Absolute Basophil Count 0.04 10^3/uL (0.0-0.2); Absolute Eosinophil Count 0.48 10^3/uL (0.0-0.7); Absolute Lymphocyte Count 1.26 10^3/uL (1.2-3.4); Absolute Monocyte Count 0.69 10^3/uL (0.1-0.8); Absolute Neutrophil Count 4.32 10^3/uL (1.2-6.7); Basophils % 0.6 %; HCT 40.9 % (36.0-46.0); HGB 13.1 g/dL (11.2-15.7); Immature Grans % 0.3 %; Lymphocytes % 18.5 %; MCH 30.1 pg (27.0-33.0); MCV 94 fL (80-95); MPV 9.4 fL (8.0-11.0); Monocytes % 10.1 %; Neutrophils % 63.5 %; Platelet Count 249 10^3/uL (130-400); RBC 4.35 10^6/uL (3.93-5.22); RDW 13.1 % (11.7-14.6); RDW-SD 45.1 fL; WBC 6.81 10^3/uL (4.4-10.8)
[2024-10-21 08:16] LABS: Hemoglobin A1C 5.1 % (<5.7)
[2024-10-21 08:57] LABS: ALT 27 U/L (14-59); AST 18 U/L (15-37); Albumin 3.3 g/dL (3.4-5.0); Alkaline Phosphatase 150 U/L (46-116); Anion Gap 8.6 mmol/L (3-11); BUN 13 mg/dL (7-18); Bilirubin, Total 0.37 mg/dL (0.2-1.0); CO2 28.4 mmol/L (21.0-32.0); Chloride 104 mmol/L (98-107); Estimated GFR 66.12 (mL/min/1.73m2); Glucose 93 mg/dL (74-106); Potassium 3.9 mmol/L (3.5-5.1); Sodium 141 mmol/L (136-145); Total Protein 7.1 g/dL (6.4-8.2); Vitamin B12 347 pg/mL (193-986); Vitamin D 25 Total 42.6 ng/mL (30-100)
== END 2024-10-21 02:46 | disposition home or self-care (01) ==
LOC: LBO 02:45
PROVIDERS: PCP Nurse Practitioner Family; Visit Provider Registered Nurse
DX: F33.3 Major depressive disorder, recurrent, severe with psychotic symptoms (principal); F43.12 Post-traumatic stress disorder, chronic; Z51.81 Encounter for therapeutic drug level monitoring
CPT/HCPCS: 36415; 80053; 82306; 82607; 83036; 84443; 85025

== ENCOUNTER 2024-12-09 02:03 | Outpatient (CLI) | payer OTHER, SELFPAY ==
--- NOTE | 2024-12-27 06:36 | TELEFU_ITS ---
Date of service: 12/09/24 Time of Service: 09:00 Nutrition Note NOTE: Freida referred for nutrition visit with goal to help better manage overall health and especially her chronic concerns with interstitial cystitis and lymphedema. weight: 144.8lbs/65.8kg height:63 BMI: 25.7 Seafood allergy noted. Takes supps at home: magnesium, potassium, fishoil, B12, D3, elerberry prn, probiotic We discussed that there really isn't a particular outlined way to manage her concerns exclusively with diet but that a general healthy diet would be recommended and that anti-inflammatory pattern is a very healthy way to eat - also include lifestyle so encouraged exercise (this as well to encourage lymph flow) and quality sleep, stress management. For anti-inflammatory diet discussed concepts that are congruent with the approach - low added sugar (suggested <15g per day), high fiber, low saturate d/transfat, large amount of protein coming from plants and very minimal high quality lean animal proteins. Reviewed spices like cinnamon, luma, turmeric, garlic, and others that help address inflammation. luna foods as well like different berries/cherries, beans/legumes, green and hibiscus teas, and keeping cooking oils from reaching smoke point. Suggested kcal target of ~1500kcals per day with goal to maintain around her current body weight but focus on body recomposition by losing fat mass and increasing lean body mass. Highly recommended strength training exercises as part of her approach and using an inexpensive bioimpedence scale to help get a better idea of body weight distribution trends as oppossed to just weight loss. emailed pt sample menus to review. She has my contact info should any questions or need for further resources arise. Time Spent in Nutritional Counseling and Treatment: 25 min
== END 2024-12-09 02:04 | disposition home or self-care (01) ==
LOC: DS 02:03
PROVIDERS: PCP Nurse Practitioner Family; Visit Provider Dietitian, Registered
DX: Z71.3 Dietary counseling and surveillance (principal); N30.10 Interstitial cystitis (chronic) without hematuria; I89.0 Lymphedema, not elsewhere classified
CPT/HCPCS: 00123; 97802

== ENCOUNTER 2025-01-13 12:10 | Outpatient (REF) | payer OTHER, SELFPAY ==
[2025-01-13 16:21] LABS: ALT 40 U/L (14-59); AST 22 U/L (15-37); Albumin 3.4 g/dL (3.4-5.0); Alkaline Phosphatase 126 U/L (46-116); Anion Gap 6.4 mmol/L (3-11); BUN 20 mg/dL (7-18); Bilirubin, Total 0.3 mg/dL (0.2-1.0); CO2 29.6 mmol/L (21.0-32.0); CREATININE 1.1 mg/dL (0.55-1.02); Calcium 9.2 mg/dL (8.5-10.1); Chloride 107 mmol/L (98-107); Estimated GFR 58.97 (mL/min/1.73m2); GGT 31 U/L (5-55); Glucose 84 mg/dL (74-106); Potassium 4.5 mmol/L (3.5-5.1); Sodium 143 mmol/L (136-145); Total Protein 6.5 g/dL (6.4-8.2)
[2025-01-13 17:22] LABS: Calculated LDL 141 mg/dL (<100); Cholesterol 245 mg/dL (<200); HDL Cholesterol 92 mg/dL (>or=50); Triglyceride 64 mg/dL (<150)
== END 2025-01-13 12:11 | disposition home or self-care (01) ==
LOC: NCHCN 12:10
PROVIDERS: PCP Nurse Practitioner Family; Visit Provider Nurse Practitioner Family
DX: R74.8 Abnormal levels of other serum enzymes (principal); Z13.220 Encounter for screening for lipoid disorders
CPT/HCPCS: 80053; 80061; 82977

== ENCOUNTER 2025-02-03 01:26 | Outpatient (CLI) | payer OTHER, SELFPAY ==
--- NOTE | 2025-02-03 14:10 | DI.MAMMO_ITS ---
Exam(s) MAMMO SCREENING EXAM: MAMMO SCREENING CLINICAL HISTORY: Z12.39 Screening TECHNIQUE: Bilateral full field digital CC and MLO mammographic images were obtained with 3D tomosyn thesis and utilizing computer aided detection (CAD). COMPARISON: Available for comparison. FINDINGS: Masses/Architectural Distortion: No suspicious masses or areas of architectural distortion are presen t. Microcalcifications: No suspicious pleomorphic-type are seen. Skin Thickening/Nipple Retraction: None. IMPRESSION: 1. No significant interval change with no specific features of malignancy noted. 2. Unless there is more urgent need, screening mammography is recommended, as per [employer] guidelines. BI-RADS Category 1 - Negative Breast Density - Category C - Heterogeneously dense Breast density category C or D implies that the patient has dense breast tissue. Dense breast tissue is very common and is not abnormal but dense breast tissue can make it harder to find cancer on a ma mmogram. Also, dense breast tissue may increase their breast cancer risk. This information about the result of the mammogram report was provided to the patient to raise their awareness. Use this report when you speak with the patient about their risks for breast cancer, which includes their family hist ory. At that time, you may recommend for more screening tests (Ultrasound or MRI) as they might be us eful based on their risk. A negative radiographic report should not delay biopsy if a dominant or clinically suspicious mass is present. Up to ten percent of cancers are not identified on mammography. A negative report may reinforce clinical impression. Adenosis and dense breasts may obscure an underlying neoplasm. False positive reports average 6 to 10%. Patient will receive a letter notifying them of these results.
== END 2025-02-03 01:46 ==
LOC: DI 01:27
PROVIDERS: PCP Nurse Practitioner Family; Visit Provider Nurse Practitioner Family
DX: Z12.31 Encounter for screening mammogram for malignant neoplasm of breast (principal); R92.333 Mammographic heterogeneous density, bilateral breasts
CPT/HCPCS: 77063; 77067